=== PATIENT | male | born 1945 | race Caucasian/White ===

== ENCOUNTER 2024-05-25 11:56 | Emergency (ER) | payer MEDICARE, SELFPAY ==
--- NOTE | ~2024-05-25 | XR_ITS ---
Clinical Indication: Chest pain PA and lateral views of the chest: Comparison: None Findings: The lungs are clear, without evidence of focal consolidation or pleural effusion. Cardiome diastinal silhouette is unremarkable, status post median sternotomy. Degenerative change of the thora columbar spine noted. Impression: Clear lungs. Reviewed, dictated and finalized at location . Impression: Clear lungs.
--- NOTE | ~2024-05-25 | CT_ITS ---
CTA chest PE protocol Ordering provider: Juancarlos Mackay MD History: 78 years Male with . Rule out pulmonary embolism . Comparison: None. Technique: CT angiogram chest was performed following timed intravenous injection of contrast. Thin s lice axial images and reformatted coronal images were obtained. Three dimensional reformatted images of the chest were also obtained using a [employer] workstation. . Automated exposure control and iterati ve reconstruction technique were employed. The dose-length product was 734.10 mGy-cm. 100 mL Omnipaqu e 350 was given IV. Findings: PULMONARY ARTERIES: No pulmonary embolus. VISUALIZED THORACIC INLET: Normal. MEDIASTINUM: Aorta/coronary arteries: Mild atheromatous disease. Heart/other: The heart is slightly enlarged. Lymph nodes: No mediastinal or hilar adenopathy. Postoperative changes in the mediastinum. LUNGS: Left lower lobe pleural-based nodule measuring 6 mm noted. 6-12 months follow-up advised. No pulmonar y masses. No infiltrates or effusions. No pneumothorax. Dependent atelectatic changes. VISUALIZED UPPER ABDOMEN: Sliding hiatus hernia. Splenule seen in the hilum of the spleen. Otherwise, the visualized upper abdomen is normal. MUSCULOSKELETAL: Soft tissues: The superficial soft tissues are normal. Bones: Age appropriate degenerative changes of the spine. IMPRESSION: 1. No pulmonary embolism. 2. No acute cardiopulmonary pathology. Reviewed, dictated and finalized at location A.
--- NOTE | 2024-05-25 11:59 | ECG_ITS ---
Test Date: 2024-05-25 12:08:13 Measurements Intervals Startex Rate: 68 P: 12 ND: 133 QRS: 5 QRSD: 93 T: 11 QT: 383 QTc: 409 Interpretive Statements SINUS RHYTHM POSSIBLE LEFT ATRIAL ENLARGEMENT [-0.1mV P-WAVE IN V1/V2] INCOMPLETE RIGHT BUNDLE BRANCH BLOCK [90+ ms QRS DURATION, TERMINAL R IN V1/V2, 40+ ms S IN I/aVL/V4/V5/V6] No previous ECG available for comparison Electronically Signed On 05-25-2024 13:06:54 CDT by Chiquita Saucedo M.D.
[2024-05-25 12:04] VITALS: BP 145/97; PULSE 78; RESP 18; TEMP 36.9; O2SAT 98
[2024-05-25 12:15] VITALS: O2SAT 97
[2024-05-25 12:17] LABS: Basophils Percent Auto 0.1 % (0.2-1.2); Eosinophils Absolute Auto 0.2 K/mm3 (0-0.3); Hemoglobin 13.3 g/dL (14.0-18.0); Immature Granulocyte Absolute 0.01 K/mm3 (0.00-0.031); Immature Granulocyte Percent A 0.1 % (0-0.5); Lymphocytes Absolute Auto 1.29 K/mm3 (0.9-3.2); Mean Corpuscular HGB Conc 30.2 g/dl (32-36); Mean Corpuscular Hemoglobin 25.3 pg (26-34); Mean Corpuscular Volume 83.8 fl (80-100); Mean Platelet Volume 11.7 fl (7.4-10.4); Monocytes Absolute Auto 0.5 K/mm3 (0.1-0.6); Monocytes Percent Auto 6.6 % (2.6-8.5); Neutrophils Absolute Auto 5.6 K/mm3 (1.3-6.7); Neutrophils Percent Auto 74.2 % (45.5-73.1); Platelet Count Result 169 k/mm3 (150-375); Red Blood Count 5.25 M/mm3 (4.6-6.20); Red Cell Distribution Width 17.6 % (11.5-14.5); White Blood Count 7.6 K/mm3 (4.5-10.0)
[2024-05-25] MEDS: ASPIRIN 81 MG CHEWABLE TABLET 324 MG PO (12:18)
--- NOTE | 2024-05-25 12:20 | ED.CHESTPAIN ---
HPI - Chest Pain General Chief Complaint: Chest Pain Stated Complaint: chest pain Time Seen by Provider: 05/25/24 12:06 Source: patient History of Present Illness HPI narrative: Patient is 78 years old white male from [place], was seen by his family physician 1 week ago because of swelling of the left lower extremity, venous Doppler was done at that time and was negative. Patient report that he had intermittent shortness of breath for months on exertion. He is telling me that he told his family physician about that 7 days ago. His family decision got concerned and called him from [place] to go to the closest emergency room to rule out PE. Currently patient is asymptomatic. He denies any fever, chills, nausea, vomiting, shortness of breath, chest pain or back pain. History of hyperlipidemia, CABG, does not smoke and drinks daily. Patient reported that his D-dimer was elevated 1 week ago that is why his family physician ordered the venous Doppler. MD complaint: chest pain Related Data Allergies Allergy/AdvReac Type Severity Reaction Status Date / Time fentanyl AdvReac Unknown Verified 05/25/24 12:17 Review of Systems Review of Systems: All systems reviewed & are unremarkable except as noted in HPI and below Exam Narrative: General appearance: Well-developed, well-nourished Skin: Normal color Head: Normocephalic, nontraumatic Eyes: Clear conjunctiva ENT: Oropharynx normal, ears normal, nose normal Neck: Supple, nontender Chest and respiratory: Airway patent, no respiratory distress, no accessory muscle use Heart: Regular rate/rhythm Abdomen: Soft, nontender, no organomegaly, quiet bowel sounds Vascular: Normal peripheral pulses, normal capillary refill. Musculoskeletal: Normal range of motion, nontender back Neurologic: Alert and oriented ?3, NUT SORTER is normal as tested, no gross motor deficit Course Vital Signs Vital signs: Vital Signs Temperature 36.9 C 05/25/24 12:04 Pulse Rate 78 05/25/24 12:04 Respiratory Rate 18 05/25/24 12:04 Blood Pressure 145/97 H 05/25/24 12:04 Pulse Oximetry 98 05/25/24 12:04 Oxygen Delivery Room Air 05/25/24 12:04 Temperature 36.9 C 05/25/24 12:04 Pulse Rate 78 05/25/24 12:04 Respiratory Rate 18 05/25/24 12:04 Blood Pressure 145/97 H 05/25/24 12:04 Pulse Oximetry 97 05/25/24 12:15 Oxygen Delivery Room Air 05/25/24 12:15 MDM - Chest Pain MDM Narrative Medical decision making narrative: Patient referred to our emergency room by his family physician at [facility] to rule out PE. Patient is asymptomatic. Vital signs are stable Physical examination is unremarkable Differential diagnosis include coronary disease, chest wall pain, anxiety, stress, less likely pulmonary embolism Blood workup showed insignificant abnormality Blood gas on room air showed respiratory alkalosis Chest x-ray showed no acute abnormality CTA pulmonary showed no pulmonary embolism. Patient still asymptomatic, The pt was discharged to home.the pt,s condition upon discharge was fair,education was provided to the pt in reference to the final impression,discharge study results,treatment,prognosis and need for follow up . Differential Diagnosis Differential diagnosis: Likely other (As above) Lab Data 05/25/24 12:10 05/25/24 12:10 Labs: Lab Results 05/25/24 05/25/24 Range/Units 12:10 13:55 WBC 7.6 (4.5-10.0) K/mm3 RBC 5.25 (4.6-6.20) M/mm3 Hgb 13.3 L (14.0-18.0) g/dL Hct 44.0 (42.0-52.0) % MCV 83.8 (80-100) fl MCH 25.3 L (26-34) pg MCHC 30.2 L (32-36) g/dl RDW 17.6 H (11.5-14.5) % Plt Count 169 (150-375) k/mm
[2024-05-25 12:32] LABS: INR 1.2; Partial Thromboplastin Time 26.8 Seconds (22.3-36.8); Prothrombin Time 15.7 Seconds (11.1-14.7)
[2024-05-25 12:38] LABS: Alveolar/Arterial O2 Gradient 26.2 mmHg; Base Excess ABG 1.4 mEq/l (+/-2.0); Fractional Inspired Oxygen 21 %; HCO3 ABG 24.8 mEq/l (22.0-26.0); Oxygen Content ABG 18.2 %vol (16.0-22.0); Oxygen Saturation ABG 96.6 % (95.0-100.0); Oxyhemoglobin 95.4 % THb (90.0-100.0); PCO2 ABG 35.4 mmHg (35.0-45.0); PO2 ABG 81.1 mmHg (80.0-100.0); PO2 FiO2 Ratio Arterial Blood 3.86 %; Total Hemoglobin 13.5 g/dL (12.0-18.0); pH ABG 7.464 (7.350-7.450)
[2024-05-25 12:39] LABS: Device ROOM AIR; Modified Allen's Test Pass; Site Drawn LEFT RADIAL
[2024-05-25 12:40] LABS: Alanine Aminotransferase 18 U/L (6-50); Albumin Level 4.1 g/dL (3.5-5.1); Alkaline Phosphatase 53 U/L (38-126); Anion Gap 7 mmol/L (4-12); Aspartate Amino Transferase 30 U/L (17-59); Bilirubin,Total 1.2 mg/dL (0.2-1.3); Blood Urea Nitrogen 8 mg/dL (9-20); Calcium 9.2 mg/dL (8.4-10.2); Carbon Dioxide 29 mmol/L (22-30); Chloride 107 mmol/L (98-107); Estimated CRCL calculation 93 ml/min; Estimated Glomerular Filt Rate > 60; Glucose 109 mg/dL (65-110); Lipase 92 U/L (23-300); Potassium 3.9 mmol/L (3.4-5.0); Sodium 143 mmol/L (137-145)
[2024-05-25 12:49] LABS: Troponin I 0.028 ng/mL (0.000-0.034)
[2024-05-25 14:17] LABS: D Dimer 1.13 ug/mL (<0.48)
[2024-05-25 14:20] LABS: NT Pro B Type Natriuretic Pept 1740 pg/mL (19.9-100)
[2024-05-25 15:39] VITALS: BP 148/72; PULSE 78; RESP 18; TEMP 36.6; O2SAT 99
== END 2024-05-25 15:42 | disposition home or self-care (01) ==
PROVIDERS: Emergency Medicine; Emergency Provider Emergency Medicine
DX: R06.00 Dyspnea, unspecified (principal); E78.5 Hyperlipidemia, unspecified; Z95.1 Presence of aortocoronary bypass graft; I45.10 Unspecified right bundle-branch block; R94.31 Abnormal electrocardiogram [ECG] [EKG]
CPT/HCPCS: 36415; 36600; 71046; 71275; 80053; 82805; 83690; 83880; 84484; 85018; 85025; 85380; 85610; 85730; 93005; 99284; A9270; Q9967